=== PATIENT | male | born 1975 | race Caucasian/White ===

== ENCOUNTER → 2016-12-10 | Outpatient (CLI) | payer OTHER ==
[~2016-12-10] MED LIST: CIPR-225 PO; FLUO20TA28 PO; HYDR-3874 PO; KETO10TA PO; MORP15TA PO; ONDA4TAB10 PO; OXYC-202 PO; OXYC-471 PO; PHEN-640 PO; SILV25CR21 TP; TAMS0.4C98 PO
--- NOTE | 2016-12-10 14:11 | Diagnostic Imaging Report ---
INDICATION: Left ureteral stent followup. FINDINGS: A single view of the abdomen shows a ureteral stent in place which is similar in position to the prior study from 12/03/2016. There remains a calculus in the left kidney which is also similar to the prior exam. IMPRESSION: Stable abdomen. Dictated by: Dictated on workstation # [id number]
== END ==
LOC: RAD 13:50
PROVIDERS: ATTEND Urology
DX: N20.0 Calculus of kidney (principal); Z96.0 Presence of urogenital implants
CPT/HCPCS: 74000

== ENCOUNTER 2016-12-11 09:37 | Outpatient (CLI) | payer OTHER ==
[~2016-12-11] VITALS: Ht 190.5 cm; Wt 135.2 kg
== END 2016-12-11 11:28 ==
LOC: PREOP 09:37
PROVIDERS: ATTEND Urology
DX: Z01.818 Encounter for other preprocedural examination (principal); N20.1 Calculus of ureter

== ENCOUNTER 2016-12-12 07:53 | Day surgery (SDC) | payer OTHER ==
[~2016-12-12] VITALS: Ht 190.5 cm; Wt 135.2 kg
[2016-12-12 08:05] VITALS: BP 136/97
[2016-12-12] MEDS ORDERED: cefTRIAXone 1 GM (ROCEPHIN) VIAL ONE ×2 (08:26→08:27)
[2016-12-12] MEDS ORDERED: NS (IVPB) 50 ML ONE (08:27)
--- NOTE | 2016-12-12 08:35 | Diagnostic Imaging Report ---
INDICATION: Left renal calculus Supine images of the abdomen are obtained with comparison made to study of 12/10/2016. A 1.8 cm calculus is again seen in the region of the left renal collecting system with left double-J nephroureteral stent having stable appearance. No additional urinary tract stone is seen. There are calcified phleboliths noted in the left hemipelvis. IMPRESSION: Stable appearance of 1.8 cm left renal calculus with ureteric stent remaining in place. Dictated by: Dictated on workstation # [id number]
[2016-12-12] MEDS ORDERED: cefTRIAXone 1 GM/NS 50 ML IVPB IV ONE ×2 (08:45)
[2016-12-12] MEDS ORDERED: LACTATED RINGERS 1,000 ML IV PRN (08:58)
--- NOTE | 2016-12-12 09:20 | Progress Note-Pre Operative ---
Pre-Operative Progress Note H&P Reviewed The H&P was reviewed, patient examined and no changes noted. Date Seen by Provider: Dec 12, 2016 Time Seen by Provider: 09:20 Date H&P Reviewed: Dec 12, 2016 Time H&P Reviewed: 09:20 Pre-Operative Diagnosis: LT RENAL STONE NASRA GRAY MD Dec 12, 2016 9:20 am
[2016-12-12] MEDS ORDERED: fentaNYL INJECTION 100 MCG/2 ML AMP ONE (10:46)
[2016-12-12] MEDS ORDERED: MIDAZOLAM 2 MG/2 ML (VERSED) VIAL ONE (10:46)
[2016-12-12] MEDS ORDERED: SEVOFLURANE (ULTANE) 15 ML INHAL SOLN ONE (10:58)
[2016-12-12] MEDS ORDERED: FUROSEMIDE 40 MG/4 ML INJ (LASIX) ONE (10:58)
[2016-12-12] MEDS ORDERED: FAMOTIDINE 20MG/2ML IV (PEPCID) ONE (10:59)
[2016-12-12] MEDS ORDERED: ONDANSETRON 4 MG/2 ML (SDV) Z0FRAN ONE (11:05)
[2016-12-12] MEDS ORDERED: DEXAMETHASONE 10 MG/ML (DECADRON) 1 ML VIAL ONE (11:05)
[2016-12-12] MEDS ORDERED: LIDOCAINE PF 2% 5 ML (XYLOCAINE) VIAL ONE (11:08)
[2016-12-12] MEDS ORDERED: proPOfol 200 MG/20 ML (DIPRIVAN) VIAL IV ONE (11:08)
--- NOTE | 2016-12-12 11:13 | Discharge Inst-Urology ---
Discharge Inst-Urology Discharge Medications New, Converted, or Re-newed RX: RX on Chart Patient Instructions/Follow Up Plan Please make appointment to been seen in office Sunday 12/24, KUB prior to it KUB on way home Post ESWL instructions Increase oral fluids for 48 hours and then as needed. Diet and Activity as tolerated. If questions or concerns contact your physician Or seek help at emergency department. NASRA GRAY MD Dec 12, 2016 11:13 am
--- NOTE | 2016-12-12 11:15 | Progress Note-Post Operative ---
Post-Operative Progess Note Surgeon (s)/Curb Setter (s) Surgeon NASRA GRAY MD Curb Setter: N/A Pre-Operative Diagnosis LT RENAL STONE Post-Operative Diagnosis SAME Procedure & Operative Findings Date of Procedure 12/12/16 Procedure Performed/Findings LT ESWL Anesthesia Type GENERAL Estimated Blood Loss Estimated blood loss (mL): N/A Specimens/Packing Specimens Removed N/A Packing: N/A NASRA GRAY MD Dec 12, 2016 11:15 am
[2016-12-12] MEDS ORDERED: morphine INJ 10 MG/ML 1ML (SYR OR VIAL) IVP PRN (11:45)
[2016-12-12] MEDS ORDERED: ONDANSETRON 4 MG/2 ML (SDV) Z0FRAN IVP PRN (11:45)
[2016-12-12 12:40] VITALS: BP 116/85
[2016-12-12 12:41] VITALS: BP 116/85
[2016-12-12 13:10] VITALS: BP 119/76
[2016-12-12 13:40] VITALS: BP 104/66
[2016-12-12 14:05] VITALS: BP 104/66
--- NOTE | 2016-12-12 18:18 | Diagnostic Imaging Report ---
INDICATION: Postop ESWL. COMPARISON: Earlier same day. FINDINGS: Single supine radiographic view of the abdomen was obtained and demonstrates expected interval changes in regards to previous described large left pelvic calculus. There are now multiple smaller amorphous calcification seen within the renal pelvis as well as the superior and inferior calyces of the left kidney. Left-sided double-J ureteral stent is again identified and is stable in position. Small bowel loops are nondistended. No unexpected radiopaque foreign bodies are seen. IMPRESSION: 1. Expected interval changes to patient's known large left renal calculus status post as ESWL as described above. Dictated by: Dictated on workstation # [id number]
--- NOTE | 2016-12-14 06:14 | OPERATIVE REPORT ---
DATE OF SERVICE: 12/12/2016 PREOPERATIVE DIAGNOSIS: Left renal stone. POSTOPERATIVE DIAGNOSIS: Left renal stone. OPERATION PERFORMED: Left ESWL. SURGEON: Edil Gray MD ANESTHESIA: General. COMPLICATIONS: None. PROCEDURE IN DETAIL: TopofForm Under satisfactory general anesthesia with the patient in the supine position on the ESWL table, the left renal stone was localized. Shocks were delivered at kV of 5. A total of 3000 shocks fragmented the stone nicely, but looks like he may need another depending on how he progresses over the next couple of weeks. The patient received 40 mg of Lasix and 30 mg of Toradol IV at the end of the procedure. He tolerated the procedure and anesthesia well, was sent to recovery room in stable condition. BottomofForm Job ID: [id number] DocumentID: [id number] Dictated Date: 12/12/2016 11:33:39 [employer] Date: 12/13/2016 01:13:25 Dictated By: EDIL GRAY MD
== END 2016-12-12 14:05 | disposition home or self-care (01) ==
LOC: SDC 07:53
PROVIDERS: ATTEND Urology
DX: N20.0 Calculus of kidney (principal); N32.9 Bladder disorder, unspecified; Z79.899 Other long term (current) drug therapy
CPT/HCPCS: 74000; 87081

== ENCOUNTER 2016-12-24 13:00 | Outpatient (CLI) | payer OTHER ==
[~2016-12-24] VITALS: Ht 190.5 cm; Wt 135.2 kg
[~2016-12-24 13:00] MED LIST changes: -NITR-68 PO
[2016-12-25] MEDS ORDERED: TAMS0.4C98 PO (08:59)
[2016-12-25] MEDS ORDERED: NITR-68 PO (08:59)
== END 2016-12-24 15:42 ==
LOC: PREOP 13:00
PROVIDERS: ATTEND Urology
DX: Z01.818 Encounter for other preprocedural examination (principal); N20.0 Calculus of kidney

== ENCOUNTER → 2016-12-24 | Outpatient (CLI) | payer OTHER ==
[~2016-12-24] MED LIST changes: +NITR-68 PO
--- NOTE | 2016-12-24 14:09 | Diagnostic Imaging Report ---
EXAMINATION: Supine view of the abdomen. INDICATION: Followup left kidney stones. FINDINGS: In the left flank, there are multiple stones with suggestion of fragmentation. They appear to be within the renal pelvis and mid and lower major calyces. They are hard to measure accurately but the largest fragment is probably about 1 cm in size. A left ureteric stent is seen. No ureteric stone is evident. IMPRESSION: Multiple stone fragments seen in the left renal pelvis and mid and lower left major calyces. Dictated by: Dictated on workstation # [id number]
== END ==
LOC: RAD 12:52
PROVIDERS: ATTEND Urology
DX: N20.0 Calculus of kidney (principal); Z96.0 Presence of urogenital implants
CPT/HCPCS: 74000

== ENCOUNTER 2016-12-25 05:52 | Day surgery (SDC) | payer OTHER ==
[~2016-12-25] VITALS: Ht 190.5 cm; Wt 135.2 kg
[2016-12-25] MEDS ORDERED: NS (IVPB) 50 ML ONE (06:19)
[2016-12-25] MEDS ORDERED: cefTRIAXone 1 GM (ROCEPHIN) VIAL ONE (06:19)
[2016-12-25] MEDS ORDERED: LACTATED RINGERS 1,000 ML IV PRN (06:42)
[2016-12-25] MEDS ORDERED: FAMOTIDINE 20MG/2ML IV (PEPCID) IV ONE (06:45)
--- NOTE | 2016-12-25 06:57 | Progress Note-Pre Operative ---
Pre-Operative Progress Note H&P Reviewed The H&P was reviewed, patient examined and no changes noted. Date Seen by Provider: Dec 25, 2016 Time Seen by Provider: 06:56 Date H&P Reviewed: Dec 25, 2016 Time H&P Reviewed: 06:56 Pre-Operative Diagnosis: LT RENAL STONES NASRA GRAY MD Dec 25, 2016 6:57 am
[2016-12-25] MEDS ORDERED: proPOfol 200 MG/20 ML (DIPRIVAN) VIAL IV ONE (06:58)
[2016-12-25] MEDS ORDERED: SEVOFLURANE (ULTANE) 15 ML INHAL SOLN ONE ×3 (06:58→08:50)
[2016-12-25] MEDS ORDERED: ONDANSETRON 4 MG/2 ML (SDV) Z0FRAN ONE (06:58)
[2016-12-25] MEDS ORDERED: LIDOCAINE PF 2% 5 ML (XYLOCAINE) VIAL ONE (06:58)
[2016-12-25] MEDS ORDERED: DEXAMETHASONE 10 MG/ML (DECADRON) 1 ML VIAL ONE (06:58)
[2016-12-25] MEDS ORDERED: MIDAZOLAM 2 MG/2 ML (VERSED) VIAL ONE (06:59)
[2016-12-25] MEDS ORDERED: fentaNYL INJECTION 100 MCG/2 ML AMP ONE (06:59)
--- NOTE | 2016-12-25 06:59 | Diagnostic Imaging Report ---
INDICATION: Stone disease FINDINGS: Left-sided double-J stent unchanged from radiograph one day prior. Multiple stones and stone fragments project over the left kidney unchanged. IMPRESSION: Extensive left-sided renal stone burden and positioning of a double-J stent all unchanged from recent exam. Dictated by: Dictated on workstation # [id number]
[2016-12-25] MEDS ORDERED: CATHETER FLUSH 10 ML SYR IV PRN (07:00)
[2016-12-25] MEDS ORDERED: cefTRIAXone 1 GM/NS 50 ML IVPB IV ONE ×2 (07:00)
[2016-12-25 07:23] VITALS: BP 118/78
--- NOTE | 2016-12-25 07:34 | Discharge Inst-Urology ---
Discharge Inst-Urology Discharge Medications New, Converted, or Re-newed RX: RX on Chart Patient Instructions/Follow Up Plan Please make appointment to been seen in office Sunday 01/07, KUB prior to it KUB on way home Post ESWL instructions Increase oral fluids for 48 hours and then as needed. Diet and Activity as tolerated. If questions or concerns contact your physician Or seek help at emergency department. NASRA GRAY MD Dec 25, 2016 7:34 am
--- NOTE | 2016-12-25 07:37 | Progress Note-Post Operative ---
Post-Operative Progess Note Surgeon (s)/Manager Field Sales (s) Surgeon NASRA GRAY MD Manager Field Sales: N/A Pre-Operative Diagnosis LT RENAL STONES Post-Operative Diagnosis SAME Procedure & Operative Findings Date of Procedure 12/25/16 Procedure Performed/Findings LT ESWL Anesthesia Type GENERAL Estimated Blood Loss Estimated blood loss (mL): N/A Specimens/Packing Specimens Removed N/A Packing: N/A NASRA GRAY MD Dec 25, 2016 7:37 am
[2016-12-25] MEDS ORDERED: FUROSEMIDE 40 MG/4 ML INJ (LASIX) ONE (07:51)
[2016-12-25] MEDS ORDERED: morphine INJ 10 MG/ML 1ML (SYR OR VIAL) IVP PRN (08:15)
[2016-12-25] MEDS ORDERED: ONDANSETRON 4 MG/2 ML (SDV) Z0FRAN IVP PRN (08:15)
[2016-12-25 08:50] VITALS: BP 115/62
[2016-12-25] MEDS ORDERED: TAMS0.4C98 PO ×2 (08:59)
[2016-12-25] MEDS ORDERED: NITR-68 PO ×2 (08:59)
[2016-12-25 09:20] VITALS: BP 120/79
[2016-12-25 09:55] VITALS: BP 120/79
--- NOTE | 2016-12-25 10:19 | OPERATIVE REPORT ---
DATE OF SERVICE: 12/25/2016 PREOPERATIVE DIAGNOSIS: Left renal stones. POSTOPERATIVE DIAGNOSIS: Left renal stones. OPERATION PERFORMED: Left ESWL. SURGEON: Edil Gray MD ANESTHESIA: General. COMPLICATIONS: None. PROCEDURE: Under satisfactory general anesthesia, the patient in supine position on the ESWL table, we first localized the left renal stone fragments in the pelvis of the kidney and delivered 1000 shocks at kV of 5. There were excellent results of fragmentation. We did the same thing after that to the mid upper area fragments and again good results, another 1000 and then the lower pole fragments and another 1000 with good results. Because of the amount of fragments in the kidney, I elected to leave the stent as a safety finnegan and precaution and we will recheck a KUB in couple of weeks and depending on how it looks, we will decide on the ashley of the stent unless the patient requests stent to be removed earlier, we will honor that request. The patient knew all this preoperatively including his . At the end of the procedure, he received 40 mg of Lasix and 30 mg of Toradol IV. He tolerated the procedure and anesthesia well and was sent to recovery room in stable condition. Job ID: [id number] DocumentID: [id number] Dictated Date: 12/25/2016 07:53:21 [place] Date: 12/25/2016 08:29:36 Dictated By: EDIL GRAY MD
--- NOTE | 2016-12-25 10:40 | Diagnostic Imaging Report ---
INDICATION: Post ESWL. FINDINGS: The left pelvic calcification, believed phlebolith, is well lateral to the distal stent and unchanged. The intraparenchymal stone burden in the left kidney shows a substantial reduction at the level of the renal pelvis and in its middle third. At least one stone projecting over the course of the proximal left stent is either in the lower pelvis or ureteropelvic junction level. The calculus measures 3.5 mm. IMPRESSION: Interval reduction in stone burden at the middle third of the left kidney medially. One stone measuring 3.5 mm may be in the proximal left ureter or near the ureteropelvic junction. No new pelvic calcifications. Dictated by: Dictated on workstation # [id number]
== END 2016-12-25 09:55 | disposition home or self-care (01) ==
LOC: SDC 05:52
PROVIDERS: ATTEND Urology
DX: N20.0 Calculus of kidney (principal); F32.9 Major depressive disorder, single episode, unspecified; E66.01 Morbid (severe) obesity due to excess calories; Z11.2 Encounter for screening for other bacterial diseases; Z68.37 Body mass index [BMI] 37.0-37.9, adult
CPT/HCPCS: 74000; 87081

== ENCOUNTER → 2018-05-19 | Outpatient (CLI) | payer OTHER ==
[~2018-05-19] MED LIST changes: +HYDR-3870 PO; -HYDR-3874 PO; +NITR-68 PO; -OXYC-202 PO; +OXYC1TAB12 PO
--- NOTE | 2018-05-19 12:20 | Diagnostic Imaging Report ---
INDICATION: Injury to left shoulder. TECHNIQUE: AP and transscapular views of the left shoulder were obtained FINDINGS: No fracture or dislocation is seen. There is no acute bony abnormality. IMPRESSION: Negative left shoulder. Dictated by: Dictated on workstation # [id number]
== END ==
LOC: RAD FS 11:51
PROVIDERS: ATTEND Nurse Practitioner Family
DX: S49.92XA Unspecified injury of left shoulder and upper arm, initial encounter (principal)
CPT/HCPCS: 73030

== ENCOUNTER → 2018-09-30 | Outpatient (CLI) | payer OTHER ==
--- NOTE | 2018-09-30 16:59 | Diagnostic Imaging Report ---
INDICATION: Left lower quadrant abdominal pain. Patient has history of kidney stones. TIME OF EXAM: 04:19 p.m. COMPARISON: Correlation is made with prior abdominal radiograph from 01/07/2017. FINDINGS: Vague calcific density overlies lower pole of left kidney. Overall stone burden in left kidney has significantly decreased since prior radiograph. No definite radiopaque urinary tract calculi in the right abdomen are identified. Pelvis is stable. No definite calculi along the course of the ureters are seen. Bowel gas pattern is unremarkable. IMPRESSION: Overall significant decrease in stone burden to the left kidney when compared with abdominal radiograph from 01/07/2017. Dictated by: Dictated on workstation # [id number]
== END ==
LOC: RAD FS 16:06
PROVIDERS: ATTEND Family Medicine
DX: R10.32 Left lower quadrant pain (principal); Z87.442 Personal history of urinary calculi
CPT/HCPCS: 74019